=== PATIENT | female | born 1955 | race Caucasian/White ===

== ENCOUNTER 2021-04-30 06:42 | Emergency (ER) | payer OTHER ==
[~2021-04-30] VITALS: Ht 172.7 cm; Wt 83.5 kg
[2021-04-30 06:47] VITALS: BP 148/84
== END 2021-04-30 08:18 | disposition home or self-care (01) ==
LOC: ER 06:42
DX: R04.0 Epistaxis (principal)

== ENCOUNTER 2021-05-02 09:36 | Emergency (ER) | payer OTHER ==
[~2021-05-02] VITALS: Ht 172.7 cm; Wt 81.7 kg
[2021-05-02 10:15] VITALS: BP 165/87
== END 2021-05-02 10:19 | disposition home or self-care (01) ==
LOC: ER 09:36
DX: R04.0 Epistaxis (principal); I10 Essential (primary) hypertension